=== PATIENT | female | born 1955 | race Caucasian/White ===

== ENCOUNTER 2016-05-05 04:02 | Inpatient (IN) | payer MEDICARE, MEDICAID ==
[2016-05-05] MEDS ORDERED: ACETAMINOPHEN TAB 500 MG TAB PO STA (05:42)
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
[2016-05-05] MEDS ORDERED: MAG HYDROX/AL HYDROX/SIMETH 30 ML CUP PO PRN (07:30)
[2016-05-05] MEDS ORDERED: ZIPRASIDONE 20 MG VIAL IM PRN (07:30)
[2016-05-05] MEDS ORDERED: ACETAMINOPHEN TAB 325 MG TAB PO PRN (07:30)
[2016-05-05] MEDS ORDERED: MAGNESIUM HYDROXIDE 2,400 MG/10 ML CUP PO PRN (07:30)
[2016-05-05] MEDS ORDERED: LORazepam 2 MG/ML SYRINGE IM PRN (07:35)
[2016-05-05] MEDS: NICOTINE 14MG/24HR PATCH TRANSDERM SCH (08:48)
[2016-05-05] MEDS: LORazepam 1 MG TAB PO PRN ×2 (10:34→16:00)
[2016-05-05 11:13] LABS: Basophils % (A) 0 %; CH 33.4; Eosinophils % (A) 1 %; HCT 35.7 % (34.0-46.0); HDW 2.17; HGB 12.3 gm/dL (11.4-16.0); Luc # (Auto) 0.15; Luc % (Auto) 2; Lymphocytes # (A) 1.2 k/uL (1.0-4.8); Lymphocytes % (A) 15 %; MCH 32.9 pg (25.0-35.0); MCHC 34.4 g/dL (31.0-37.0); MCV 95.7 fL (80.0-100.0); Mean Platelet Volume 6.6; Monocytes # (A) 0.5 k/uL (0-1.0); Monocytes % (A) 6 %; Neutrophils # (A) 6.2 k/uL (1.3-7.7); Neutrophils % (A) 77 %; RBC 3.73 m/uL (3.80-5.40); RDW 12.4 % (11.5-15.5); WBC 8.1 k/uL (3.8-10.6); WBC (Perox) 8.74
[2016-05-05 12:05] LABS: ALT 38 U/L (9-52); AST 37 U/L (14-36); Alkaline Phosphatase 77 U/L (38-126); Anion Gap 12 mmol/L; Blood Urea Nitrogen 3 mg/dL (7-17); Calcium 8.7 mg/dL (8.4-10.2); Carbon Dioxide 23 mmol/L (22-30); Chloride 87 mmol/L (98-107); Glucose 79 mg/dL (74-99); Non-African American GFR(MDRD) >60 (>60 ml/min/1.73 sqM); Potassium 4.1 mmol/L (3.5-5.1); Sodium 122 mmol/L (137-145); Total Bilirubin 0.5 mg/dL (0.2-1.3); Total Protein 6.5 g/dL (6.3-8.2)
[2016-05-05] MEDS ORDERED: AZELASTINE 137MCG/SPRAY EA NOSTRIL PRN (13:32)
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
[2016-05-05] MEDS: tiZANidine 4 MG TAB PO SCH ×2 (15:59→20:33)
[2016-05-05] MEDS: METOCLOPRAMIDE 10 MG TAB PO SCH (20:32)
[2016-05-05] MEDS: PRIMIDONE 50 MG TAB PO SCH (20:32)
[2016-05-05] MEDS: ATORVASTATIN 40 MG TAB PO SCH (20:33)
[2016-05-06] MEDS: tiZANidine 4 MG TAB PO SCH ×3 (08:41→20:35)
[2016-05-06] MEDS: PANTOPRAZOLE 40 MG TABLET PO SCH (08:41)
[2016-05-06] MEDS: NICOTINE 14MG/24HR PATCH TRANSDERM SCH (08:41)
[2016-05-06] MEDS: MONTELUKAST 10 MG TAB PO SCH (08:41)
[2016-05-06] MEDS: ASPIRIN 81 MG CHEW PO SCH (08:41)
[2016-05-06] MEDS: PRIMIDONE 50 MG TAB PO SCH ×2 (08:41→20:35)
[2016-05-06] MEDS: METOCLOPRAMIDE 10 MG TAB PO SCH ×2 (08:42→20:35)
[2016-05-06] MEDS: HYDROcodone/APAP 5-325MG 1 EACH TAB PO PRN ×2 (08:47→16:23)
[2016-05-06 09:50] LABS: ALT 42 U/L (9-52); AST 43 U/L (14-36); Alkaline Phosphatase 94 U/L (38-126); Anion Gap 14 mmol/L; Blood Urea Nitrogen 7 mg/dL (7-17); Calcium 9.9 mg/dL (8.4-10.2); Carbon Dioxide 24 mmol/L (22-30); Chloride 91 mmol/L (98-107); Glucose 104 mg/dL (74-99); Non-African American GFR(MDRD) >60 (>60 ml/min/1.73 sqM); Sodium 129 mmol/L (137-145); Total Bilirubin 0.9 mg/dL (0.2-1.3); Total Protein 7.4 g/dL (6.3-8.2)
[2016-05-06 14:57] VITALS: BMI 15.1
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
[2016-05-06] MEDS: ATORVASTATIN 40 MG TAB PO SCH (20:35)
[2016-05-06] MEDS: LORazepam 1 MG TAB PO PRN (20:36)
[2016-05-06 20:38] VITALS: RESP 18
[2016-05-07 00:29] VITALS: BP 114/71; PULSE 79; TEMP 97.9
[2016-05-07] MEDS: HYDROcodone/APAP 5-325MG 1 EACH TAB PO PRN ×2 (00:29→09:44)
[2016-05-07] MEDS ORDERED: CITALOPRAM HYDROBROMIDE 20 MG TAB PO SCH (09:00)
[2016-05-07] MEDS: NICOTINE 14MG/24HR PATCH TRANSDERM SCH (09:42)
[2016-05-07] MEDS: PRIMIDONE 50 MG TAB PO SCH (09:42)
[2016-05-07] MEDS: MONTELUKAST 10 MG TAB PO SCH (09:42)
[2016-05-07] MEDS: tiZANidine 4 MG TAB PO SCH (09:42)
[2016-05-07] MEDS: PANTOPRAZOLE 40 MG TABLET PO SCH (09:43)
[2016-05-07] MEDS: ASPIRIN 81 MG CHEW PO SCH (09:43)
[2016-05-07] MEDS: METOCLOPRAMIDE 10 MG TAB PO SCH (09:43)
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
== END 2016-05-07 14:28 | disposition home or self-care (01) | DRG 885 ==
LOC: EC 04:02 → 3MHU 07:29
PROVIDERS: ADMIT Psychiatry & Neurology Psychiatry; ATTEND Psychiatry & Neurology Psychiatry
PROC: HZ2ZZZZ Detoxification Services for Substance Abuse Treatment (ICD-10-PCS; principal; 2016-05-05)
DX: F33.2 Major depressive disorder, recurrent severe without psychotic features (principal); R64 Cachexia; E46 Unspecified protein-calorie malnutrition; E87.1 Hypo-osmolality and hyponatremia; R45.851 Suicidal ideations; F03.90 Unspecified dementia, unspecified severity, without behavioral disturbance, psychotic disturbance, mood disturbance, and anxiety; Z68.1 Body mass index [BMI] 19.9 or less, adult; F10.24 Alcohol dependence with alcohol-induced mood disorder; F10.239 Alcohol dependence with withdrawal, unspecified; J44.9 Chronic obstructive pulmonary disease, unspecified; G62.1 Alcoholic polyneuropathy; F10.229 Alcohol dependence with intoxication, unspecified; F41.9 Anxiety disorder, unspecified; J45.909 Unspecified asthma, uncomplicated; M54.2 Cervicalgia; M19.90 Unspecified osteoarthritis, unspecified site; M54.9 Dorsalgia, unspecified; M81.0 Age-related osteoporosis without current pathological fracture; G89.29 Other chronic pain; F17.210 Nicotine dependence, cigarettes, uncomplicated; Z90.710 Acquired absence of both cervix and uterus; Z90.49 Acquired absence of other specified parts of digestive tract; Z87.81 Personal history of (healed) traumatic fracture; Z80.0 Family history of malignant neoplasm of digestive organs; Z79.82 Long term (current) use of aspirin; Z79.83 Long term (current) use of bisphosphonates; Z79.891 Long term (current) use of opiate analgesic; Z98.1 Arthrodesis status; Z79.899 Other long term (current) drug therapy; Z71.6 Tobacco abuse counseling; Z63.0 Problems in relationship with spouse or partner; Z56.0 Unemployment, unspecified; Y90.5 Blood alcohol level of 100-119 mg/100 ml
CPT/HCPCS: 80053; 80306; 82075; 84443; 85025; 93005; 99285

== ENCOUNTER 2017-01-23 11:55 | Emergency (ER) | payer MEDICARE, OTHER ==
[2017-01-23] MEDS ORDERED: SODIUM CHLORIDE 0.9% 500 ML IV STA (11:56)
[2017-01-23] MEDS ORDERED: methylPREDNISolone SOD SUCCI 125 MG/2 ML VIAL IV STA (11:56)
--- NOTE | 2017-01-23 11:59 | ED ---
General Adult HPI - General Stated complaint: Chest Pain/SOB Time Seen by Provider: 01/23/17 11:55 Source: RN notes reviewed - History of Present Illness Initial comments: This is a 61-year-old female who presents emergency Department complaining of difficulty breathing last couple days. Patient states she's a COPD or. Patient states she continues to smoke. Patient states this shortness of breath is worse with exertion. Patient states she supposed be getting some oxygen for home use Weak but she has yet to get it. Patient denies any fever or chills. Patient states she has a dry cough which is typical for her. Patient states that she has chest pain only when she takes a deep breath. Patient denies any abdominal pain patient denies nausea or vomiting. Patient denies any lightheadedness or dizziness patient denies any numbness or weakness - Related Data Home Medications Medication Instructions Recorded Confirmed Alendronate Sodium [Fosamax] 70 mg PO Q7D 05/05/16 01/23/17 Aspirin EC [Ecotrin Low Dose] 81 mg PO DAILY 05/05/16 01/23/17 Atorvastatin [Lipitor] 40 mg PO HS 05/05/16 01/23/17 Azelastine HCl [Astepro] 1 spray EA NOSTRIL DAILY PRN 05/05/16 01/23/17 Citalopram Hydrobromide 40 mg PO DAILY 05/05/16 01/23/17 [Citalopram HBr] HYDROcodone/APAP 10-325MG [[place] 1 tab PO QID PRN 05/05/16 01/23/17 10-325] Metoclopramide [Reglan] 10 mg PO BID PRN 05/05/16 01/23/17 Montelukast [Singulair] 10 mg PO HS 05/05/16 01/23/17 Omeprazole [PriLOSEC] 20 mg PO AC-BRKFST 05/05/16 01/23/17 Primidone [Mysoline] 50 mg PO BID 05/05/16 01/23/17 tiZANidine [Zanaflex] 4 mg PO TID 05/05/16 01/23/17 ALPRAZolam [Xanax] 1 mg PO TID PRN 01/23/17 01/23/17 Albuterol Nebulized [Ventolin 2.5 mg INHALATION RT-QID 01/23/17 01/23/17 Nebulized] Ipratropium/Albuterol Sulfate 1 puff INHALATION RT-QID 01/23/17 01/23/17 [Combivent Respimat Inhaler] Previous Rx's Medication Instructions Recorded predniSONE 40 mg PO DAILY #8 tab 01/23/17 Allergies Allergy/AdvReac Type Severity Reaction Status Date / Time No Known Allergies Allergy Verified 01/23/17 12:20 Review of Systems ROS Statement: Those systems with pertinent positive or pertinent negative responses have been documented in the HPI. ROS Other: All systems not noted in ROS Statement are negative. Past Medical History Past Medical History: Asthma, COPD, Osteoarthritis (OA) Additional Past Medical History / Comment(s): Osteoporosis History of Any Multi-Drug Resistant Organisms: None Reported Past Surgical History: Appendectomy, Section, Hysterectomy Additional Past Surgical History / Comment(s): ACDF, ORIF right foot Past Psychological History: Anxiety, Depression Smoking Status: Current every day smoker Past Alcohol Use History: Occasional Additional Past Alcohol Use History / Comment(s): Patient is a smoker of 2 packs of cigarettes per day for 45 years. She states she drinks 2-325 ounce beers per day for the past 40 years. Past Drug Use History: None Reported - Past Family History Mother Additional Family Medical History / Comment(s): Mother at age 38 from colon cancer. Patient does not know her father. Son(s) Additional Family Medical History / Comment(s): Patient has 3 children, 2 boys and one girl with no major medical problems. Patient does not have any brothers or sisters. General Exam - General Exam Comments Initial Comments: GENERAL: Patient is well-developed and well-nourished. Patient is nontoxic and well- hydrated and is in mild distress. ENT: Neck is soft and supple. No significant lymphadenopathy is noted. Oropharynx is clear. Moist mucous membranes. Neck has full range of motion without eliciting any pain. EYES: The sclera were anicteric and conjunctiva were pink and moist. Extraocular movements were intact and pupils were equal round and reactive to light. Eyelids were unremarkable. PULMONARY: Patient has fairly good air movement but there is expiratory wheezing throughout CARDIOVASCULAR: There is a regular rate and rhythm without any murmurs gallops or rubs. ABDOMEN: Soft and nontender with normal bowel sounds. No palpable organomegaly was noted. There is no palpable pulsatile mass. SKIN: Skin is clear with no lesions or rashes and otherwise unremarkable. NEUROLOGIC: Patient is alert and oriented x3. Cranial nerves II through XII are grossly intact. Motor and sensory are also intact. Normal speech, volume and content. Symmetrical smile. MUSCULOSKELETAL: Normal extremities with adequate strength and full range of motion. No lower extremity swelling or edema. No calf tenderness. LYMPHATICS: No significant lymphadenopathy is noted PSYCHIATRIC: Normal psychiatric evaluation. Normal interpersonal interactions appears functionally intact in deals appropriately with others. No signs of depression. No signs of anxiety. Course Vital Signs 01/23/17 01/23/17 01/23/17 11:57 12:32 12:50 Temperature 98.7 F 97.6 F Pulse Rate 88 85 85 Respiratory 18 16 18 Rate Blood Pressure 120/81 126/77 O2 Sat by Pulse 96 97 Oximetry Medical Decision Making - Medical Decision Making Chest x-ray shows no acute normalities just COPD. Patient received steroids here and ordered he had 2 breathing treatments in route to the hospital. After lab work came back I ambulated the patient around the emergency department pulse ox was 95% on room air after ambulating and the patient stated she did feel better. - Lab Data Result diagrams: 01/23/17 12:10 01/23/17 12:10 Lab Results 01/23/17 01/23/17 01/23/17 Range/Units 12:10 12:10 12:10 WBC 6.4 (3.8-10.6) k/uL RBC 4.64 (3.80-5.40) m/uL Hgb 15.1 (11.4-16.0) gm/dL Hct 45.9 (34.0-46.0) % MCV 99.0 (80.0-100.0) fL MCH 32.6 (25.0-35.0) pg MCHC 32.9 (31.0-37.0) g/dL RDW 12.4 (11.5-15.5) % Plt Count 279 (150-450) k/uL Neutrophils % 70 % Lymphocytes % 21 % Monocytes % 5 % Eosinophils % 2 % Basophils % 1 % Neutrophils # 4.5 (1.3-7.7) k/uL Lymphocytes # 1.4 (1.0-4.8) k/uL Monocytes # 0.3 (0-1.0) k/uL Eosinophils # 0.1 (0-0.7) k/uL Basophils # 0.0 (0-0.2) k/uL PT (9.0-12.0) sec INR (<1.2) APTT (22.0-30.0) sec Sodium 138 (137-145) mmol/L Potassium 4.7 (3.5-5.1) mmol/L Chloride 101 (98-107) mmol/L Carbon Dioxide 24 (22-30) mmol/L Anion Gap 13 mmol/L BUN 7 (7-17) mg/dL Creatinine 0.75 (0.52-1.04) mg/dL Est GFR (MDRD) Af Amer >60 (>60 ml/min/1.73 sqM) Est GFR (MDRD) Non-Af >60 (>60 ml/min/1.73 sqM) Glucose 80 (74-99) mg/dL Calcium 10.0 (8.4-10.2) mg/dL Magnesium 2.1 (1.6-2.3) mg/dL Total Bilirubin 0.8 (0.2-1.3) mg/dL AST 42 H (14-36) U/L ALT 38 (9-52) U/L Alkaline Phosphatase 68 (38-126) U/L Total Creatine Kinase 159 H (30-135) U/L CK-MB (CK-2) 1.7 (0.0-2.4) ng/mL CK-MB (CK-2) Rel Index 1.1 Troponin I <0.012 (0.000-0.034) ng/mL Total Protein 8.1 (6.3-8.2) g/dL Albumin 5.2 H (3.5-5.0) g/dL 01/23/17 Range/Units 12:10 WBC (3.8-10.6) k/uL RBC (3.80-5.40) m/uL Hgb (11.4-16.0) gm/dL Hct (34.0-46.0) % MCV (80.0-100.0) fL MCH (25.0-35.0) pg MCHC (31.0-37.0) g/dL RDW (11.5-15.5) % Plt Count (150-450) k/uL Neutrophils % % Lymphocytes % % Monocytes % % Eosinophils % % Basophils % % Neutrophils # (1.3-7.7) k/uL Lymphocytes # (1.0-4.8) k/uL Monocytes # (0-1.0) k/uL Eosinophils # (0-0.7) k/uL Basophils # (0-0.2) k/uL PT 10.6 (9.0-12.0) sec INR 1.0 (<1.2) APTT 21.9 L (22.0-30.0) sec Sodium (137-145) mmol/L Potassium (3.5-5.1) mmol/L Chloride (98-107) mmol/L Carbon Dioxide (22-30) mmol/L Anion Gap mmol/L BUN (7-17) mg/dL Creatinine (0.52-1.04) mg/dL Est GFR (MDRD) Af Amer (>60 ml/min/1.73 sqM) Est GFR (MDRD) Non-Af (>60 ml/min/1.73 sqM) Glucose (74-99) mg/dL Calcium (8.4-10.2) mg/dL Magnesium (1.6-2.3) mg/dL Total Bilirubin (0.2-1.3) mg/dL AST (14-36) U/L ALT (9-52) U/L Alkaline Phosphatase (38-126) U/L Total Creatine Kinase (30-135) U/L CK-MB (CK-2) (0.0-2.4) ng/mL CK-MB (CK-2) Rel Index Troponin I (0.000-0.034) ng/mL Total Protein (6.3-8.2) g/dL Albumin (3.5-5.0) g/dL Disposition Clinical Impression: Acute exacerbation of chronic obstructive airways disease Disposition: HOME SELF-CARE Condition: Good Instructions: COPD (Chronic Obstructive Pulmonary Disease) (ED) Prescriptions: predniSONE 40 mg PO DAILY #8 tab Referrals: Santosh Hyatt DO [Primary Care Provider] - 1-2 days Time of Disposition: 13:53
[2017-01-23 12:48] LABS: Basophils % (A) 1 %; CH 32.7; CHCM 33.2; Eosinophils # (A) 0.1 k/uL (0-0.7); Eosinophils % (A) 2 %; HCT 45.9 % (34.0-46.0); HDW 2.16; HGB 15.1 gm/dL (11.4-16.0); Luc % (Auto) 2; Lymphocytes # (A) 1.4 k/uL (1.0-4.8); Lymphocytes % (A) 21 %; MCH 32.6 pg (25.0-35.0); MCHC 32.9 g/dL (31.0-37.0); Monocytes # (A) 0.3 k/uL (0-1.0); Monocytes % (A) 5 %; Neutrophils # (A) 4.5 k/uL (1.3-7.7); Neutrophils % (A) 70 %; RBC 4.64 m/uL (3.80-5.40); RDW 12.4 % (11.5-15.5); WBC 6.4 k/uL (3.8-10.6); WBC (Perox) 6.36
--- NOTE | 2017-01-23 12:53 | XR ---
EXAMINATION TYPE: XR chest 2V DATE OF EXAM: 01/23/2017 HISTORY: difficulty breathing. REFERENCE: Previous study dated 02/06/2014. FINDINGS: The lungs are overinflated but clear. Pleural spaces are clear. The heart is not enlarged. IMPRESSION: COPD.
[2017-01-23 12:56] LABS: Anion Gap 13 mmol/L; Carbon Dioxide 24 mmol/L (22-30); Chloride 101 mmol/L (98-107); Glucose 80 mg/dL (74-99); Non-African American GFR(MDRD) >60 (>60 ml/min/1.73 sqM); Sodium 138 mmol/L (137-145); Total Bilirubin 0.8 mg/dL (0.2-1.3)
[2017-01-23 13:05] LABS: Blood Urea Nitrogen 7 mg/dL (7-17); Potassium 4.7 mmol/L (3.5-5.1)
[2017-01-23 13:06] LABS: ALT 38 U/L (9-52); AST 42 U/L (14-36); Alkaline Phosphatase 68 U/L (38-126); Magnesium 2.1 mg/dL (1.6-2.3); Prothrombin Time 10.6 sec (9.0-12.0); Total Protein 8.1 g/dL (6.3-8.2)
[2017-01-23 13:07] LABS: Partial Thromboplastin Time 21.9 sec (22.0-30.0)
[2017-01-23 13:10] VITALS: RESP 18
[2017-01-23 13:10] LABS: Creatine Kinase 159 U/L (30-135)
[2017-01-23 13:21] LABS: Creatine Kinase MB 1.7 ng/mL (0.0-2.4)
[2017-01-23 13:22] LABS: Troponin I <0.012 ng/mL (0.000-0.034)
[2017-01-23 14:04] VITALS: BP 133/87; PULSE 98; TEMP 98.6
== END 2017-01-23 14:00 | disposition home or self-care (01) ==
LOC: EC 11:55
DX: J44.1 Chronic obstructive pulmonary disease with (acute) exacerbation (principal); M81.0 Age-related osteoporosis without current pathological fracture; F32.9 Major depressive disorder, single episode, unspecified; F17.210 Nicotine dependence, cigarettes, uncomplicated; Z79.82 Long term (current) use of aspirin; Z79.899 Other long term (current) drug therapy
CPT/HCPCS: 99285; 96374; 96361; 36415; 93005; 80053; 82550; 82553; 83735; 84484; 85025; 85610; 85730; 71020; J2930

== ENCOUNTER 2017-02-11 20:11 | Inpatient (IN) | payer MEDICARE, OTHER ==
[2017-02-11] MEDS ORDERED: NALOXONE 0.4 MG/ML 10 ML VIAL IVP STA (20:31)
[2017-02-11] MEDS ORDERED: SUCCINYLCHOLINE CHLORIDE VIAL 200 MG/10 ML VIAL IV STA (20:36)
[2017-02-11 20:37] LABS: Glucose,Whole Blood 71 mg/dL (75-99)
--- NOTE | 2017-02-11 20:40 | ED ---
General Adult HPI - General Chief complaint: Overdose Stated complaint: Altered Mental Status Time Seen by Provider: 02/11/17 20:29 Source: EMS, RN notes reviewed Mode of arrival: EMS Limitations: altered mental status, physical limitation - History of Present Illness Initial comments: Patient is an unresponsive 61-year-old female presenting to the emergency department for change in mental status. Family found patient with decreased responsiveness. Nurse states patient has had decreased responsiveness since arrival. Family reported prescription bottle of 60 Xanax prescribed 1 week ago is gone and they have concern for overdose. Patient is unable to provide any further history. Family is not present at this time - Related Data Home Medications Medication Instructions Recorded Confirmed Alendronate Sodium [Fosamax] 70 mg PO Q7D 05/05/16 02/14/17 HYDROcodone/APAP 10-325MG [[place] 1 tab PO Q4H PRN 05/05/16 02/14/17 10-325] tiZANidine [Zanaflex] 4 mg PO TID 05/05/16 02/14/17 Ipratropium/Albuterol Sulfate 1 puff INHALATION RT-QID 01/23/17 02/14/17 [Combivent Respimat Inhaler] Fluticasone Propionate [Flovent 2 puff INHALATION RT-BID 02/12/17 02/14/17 Hfa 220MCG] Previous Rx's Medication Instructions Recorded ALPRAZolam [Xanax] 1 mg PO HS PRN #14 tablet 02/18/17 Albuterol Nebulized [Ventolin 2.5 mg INHALATION RT-Q4H PRN #0 02/18/17 Nebulized] Aspirin EC [Ecotrin Low Dose] 81 mg PO DAILY #14 tablet.dr 02/18/17 Atorvastatin [Lipitor] 40 mg PO HS #14 tab 02/18/17 Azelastine HCl [Astepro] 1 spray EA NOSTRIL DAILY PRN spr 02/18/17 Budesonide [Pulmicort] 0.5 mg INHALATION RT-BID PRN 14 02/18/17 Days nebu Cholecalciferol [Vitamin D3] 1,000 unit PO DAILY #14 tab 02/18/17 Citalopram Hydrobromide 40 mg PO DAILY #14 tablet 02/18/17 [Citalopram HBr] Ipratropium-Albuterol Nebulize 3 ml INHALATION RT-TID PRN 14 Days 02/18/17 [Duoneb 0.5 mg-3 mg/3 ml Soln] ampul.neb Metoclopramide [Reglan] 5 mg PO DAILY PRN #14 tab 02/18/17 Metoprolol Succinate (ER) [Toprol 25 mg PO DAILY #7 tab.er.24h 02/18/17 XL] Montelukast [Singulair] 10 mg PO HS #14 tab 02/18/17 Nicotine 14Mg/24Hr Patch [Habitrol] 1 patch TRANSDERM DAILY #14 patch 02/18/17 Omeprazole [PriLOSEC] 20 mg PO AC-BRKFST #14 capsule.dr 02/18/17 Primidone [Mysoline] 50 mg PO BID #28 tab 02/18/17 tiZANidine [Zanaflex] 4 mg PO TID #42 tab 02/18/17 Allergies Allergy/AdvReac Type Severity Reaction Status Date / Time No Known Allergies Allergy Verified 02/14/17 17:40 Review of Systems ROS Statement: Those systems with pertinent positive or pertinent negative responses have been documented in the HPI. ROS Other: All systems not noted in ROS Statement are negative. Limitations: ROS unobtainable due to patients medical condition Past Medical History Past Medical History: Asthma, COPD, Osteoarthritis (OA) Additional Past Medical History / Comment(s): Osteoporosis History of Any Multi-Drug Resistant Organisms: None Reported Past Surgical History: Appendectomy, Section, Hysterectomy Additional Past Surgical History / Comment(s): ACDF, ORIF right foot Past Psychological History: Anxiety, Depression Smoking Status: Current every day smoker Past Alcohol Use History: Occasional Past Drug Use History: None Reported - Past Family History Mother Additional Family Medical History / Comment(s): Mother at age 38 from colon cancer. Patient does not know her father. Son(s) Additional Family Medical History / Comment(s): Patient has 3 children, 2 boys and one girl with no major medical problems. Patient does not have any brothers or sisters. General Exam Limitations: altered mental status General appearance: obtunded Head exam: Present: atraumatic Eye exam: Present: normal appearance ENT exam: Present: normal oropharynx Neck exam: Present: normal inspection Respiratory exam: Present: normal lung sounds bilaterally Cardiovascular Exam: Present: regular rate, normal rhythm GI/Abdominal exam: Present: soft. Absent: tenderness Extremities exam: Present: normal inspection Expanded Neurological exam: Present: other (Nonverbal. Limited gag.) Eye Response: (1) no response Motor Response: (4) withdraws to pain (Limited withdrawal) Verbal Response: (1) no verbal response Psychiatric exam: Present: other (Nonverbal) Skin exam: Present: normal color. Absent: rash Course Vital Signs 02/11/17 02/11/17 02/11/17 20:14 20:24 20:41 Temperature 96.8 F L Pulse Rate 82 76 61 Respiratory 14 18 20 Rate Blood Pressure 102/67 89/67 124/80 O2 Sat by Pulse 98 98 100 Oximetry 02/11/17 02/11/17 02/11/17 21:10 21:32 21:49 Temperature Pulse Rate 70 63 66 Respiratory 14 14 14 Rate Blood Pressure 111/58 101/60 96/59 O2 Sat by Pulse 100 100 100 Oximetry 02/11/17 02/11/17 02/11/17 21:54 22:09 22:31 Temperature Pulse Rate 67 66 80 Respiratory 14 14 14 Rate Blood Pressure 99/60 95/59 107/64 O2 Sat by Pulse 100 100 100 Oximetry 02/11/17 02/11/17 02/12/17 22:58 23:48 00:25 Temperature Pulse Rate 62 66 59 L Respiratory 14 14 14 Rate Blood Pressure 131/77 103/62 116/75 O2 Sat by Pulse 100 100 100 Oximetry 02/12/17 02/12/17 00:58 00:59 Temperature 98.1 F Pulse Rate 75 Respiratory 14 14 Rate Blood Pressure 124/59 O2 Sat by Pulse 100 96 Oximetry - Reevaluation(s) Reevaluation #1: 02/11/17 20:55 No improvement with Narcan. Patient was intubated. 02/11/17 21:19 Endotracheal tube advanced. 02/11/17 21:[address] Ahmadi. EKG Findings - EKG Comments: EKG Findings:: Normal sinus rhythm 79. [place] 158. QRS 56. QT 388. QTC 444. Normal axis. Septal Q waves. No acute ST change. Procedures - Intubation Time Out Performed: Yes Paralytic: Succinylcholine Mg Given: 80 Laryngoscope: Calderón Size: 3 ET Tube Size: 7 Tube Secured Depth (cm): 21 Tube Placement Confirmation: visualized tube passing through cords, equal breath sounds bilaterally, confirmation by capnometry Patient Tolerated Procedure: well Intubation Complications: none Medical Decision Making - Lab Data Result diagrams: 02/14/17 06:40 02/14/17 06:40 Lab Results 02/11/17 02/11/17 02/11/17 Range/Units 20:19 20:19 20:19 WBC 4.2 (3.8-10.6) k/uL RBC 4.45 (3.80-5.40) m/uL Hgb 14.0 (11.4-16.0) gm/dL Hct 43.9 (34.0-46.0) % MCV 98.5 (80.0-100.0) fL MCH 31.5 (25.0-35.0) pg MCHC 32.0 (31.0-37.0) g/dL RDW 12.4 (11.5-15.5) % Plt Count 297 (150-450) k/uL Neutrophils % 47 % Lymphocytes % 43 % Monocytes % 6 % Eosinophils % 2 % Basophils % 0 % Neutrophils # 2.0 (1.3-7.7) k/uL Lymphocytes # 1.8 (1.0-4.8) k/uL Monocytes # 0.3 (0-1.0) k/uL Eosinophils # 0.1 (0-0.7) k/uL Basophils # 0.0 (0-0.2) k/uL PT (9.0-12.0) sec INR (<1.2) Sample Site ABG pH (7.35-7.45) ABG pCO2 (35-45) mmHg ABG pO2 (83-108) mmHg ABG HCO3 (21-25) mmol/L ABG Total CO2 (19-24) mmol/L ABG O2 Saturation (94-97) % ABG Base Excess mmol/L FiO2 % Sodium 137 (137-145) mmol/L Potassium 4.6 (3.5-5.1) mmol/L Chloride 105 (98-107) mmol/L Carbon Dioxide 23 (22-30) mmol/L Anion Gap 9 mmol/L BUN 8 (7-17) mg/dL Creatinine 0.60 (0.52-1.04) mg/dL Est GFR (MDRD) Af Amer >60 (>60 ml/min/1.73 sqM) Est GFR (MDRD) Non-Af >60 (>60 ml/min/1.73 sqM) Glucose 81 (74-99) mg/dL POC Glucose (mg/dL) (75-99) mg/dL POC Glu [employer] Analysis Technician ID Calcium 9.7 (8.4-10.2) mg/dL Total Bilirubin 0.4 (0.2-1.3) mg/dL AST 25 (14-36) U/L ALT 32 (9-52) U/L Alkaline Phosphatase 76 (38-126) U/L Total Creatine Kinase 85 (30-135) U/L CK-MB (CK-2) 2.0 (0.0-2.4) ng/mL CK-MB (CK-2) Rel Index 2.4 Troponin I <0.012 (0.000-0.034) ng/mL Total Protein 6.4 (6.3-8.2) g/dL Albumin 4.1 (3.5-5.0) g/dL Urine HCG, Qual (Not Detectd) Salicylates <1.0 mg/dL Urine Opiates Screen (NotDetected) Ur Oxycodone Screen (NotDetected) Urine Methadone Screen (NotDetected) Ur Propoxyphene Screen (NotDetected) Acetaminophen <10.0 ug/mL Ur Barbiturates Screen (NotDetected) U Tricyclic Antidepress (NotDetected) Ur Phencyclidine Scrn (NotDetected) Ur Amphetamines Screen (NotDetected) U Methamphetamines Scrn (NotDetected) U Benzodiazepines Scrn (NotDetected) Urine Cocaine Screen (NotDetected) U Marijuana (THC) Screen (NotDetected) Serum Alcohol <10 mg/dL 02/11/17 02/11/17 02/11/17 Range/Units 20:19 20:20 21:21 WBC (3.8-10.6) k/uL RBC (3.80-5.40) m/uL Hgb (11.4-16.0) gm/dL Hct (34.0-46.0) % MCV (80.0-100.0) fL MCH (25.0-35.0) pg MCHC (31.0-37.0) g/dL RDW (11.5-15.5) % Plt Count (150-450) k/uL Neutrophils % % Lymphocytes % % Monocytes % % Eosinophils % % Basophils % % Neutrophils # (1.3-7.7) k/uL Lymphocytes # (1.0-4.8) k/uL Monocytes # (0-1.0) k/uL Eosinophils # (0-0.7) k/uL Basophils # (0-0.2) k/uL PT 10.6 (9.0-12.0) sec INR 1.0 (<1.2) Sample Site ABG pH (7.35-7.45) ABG pCO2 (35-45) mmHg ABG pO2 (83-108) mmHg ABG HCO3 (21-25) mmol/L ABG Total CO2 (19-24) mmol/L ABG O2 Saturation (94-97) % ABG Base Excess mmol/L FiO2 % Sodium (137-145) mmol/L Potassium (3.5-5.1) mmol/L Chloride (98-107) mmol/L Carbon Dioxide (22-30) mmol/L Anion Gap mmol/L BUN (7-17) mg/dL Creatinine (0.52-1.04) mg/dL Est GFR (MDRD) Af Amer (>60 ml/min/1.73 sqM) Est GFR (MDRD) Non-Af (>60 ml/min/1.73 sqM) Glucose (74-99) mg/dL POC Glucose (mg/dL) 71 L (75-99) mg/dL POC Glu [employer] Analysis Technician ID Asha [place] Calcium (8.4-10.2) mg/dL Total Bilirubin (0.2-1.3) mg/dL AST (14-36) U/L ALT (9-52) U/L Alkaline Phosphatase (38-126) U/L Total Creatine Kinase (30-135) U/L CK-MB (CK-2) (0.0-2.4) ng/mL CK-MB (CK-2) Rel Index Troponin I (0.000-0.034) ng/mL Total Protein (6.3-8.2) g/dL Albumin (3.5-5.0) g/dL Urine HCG, Qual (Not Detectd) Salicylates mg/dL Urine Opiates Screen Not Detected (NotDetected) Ur Oxycodone Screen Not Detected (NotDetected) Urine Methadone Screen Not Detected (NotDetected) Ur Propoxyphene Screen Not Detected (NotDetected) Acetaminophen ug/mL Ur Barbiturates Screen Detected H (NotDetected) U Tricyclic Antidepress Not Detected (NotDetected) Ur Phencyclidine Scrn Not Detected (NotDetected) Ur Amphetamines Screen Not Detected (NotDetected) U Methamphetamines Scrn Not Detected (NotDetected) U Benzodiazepines Scrn Detected H (NotDetected) Urine Cocaine Screen Not Detected (NotDetected) U Marijuana (THC) Screen Not Detected (NotDetected) Serum Alcohol mg/dL 02/11/17 02/11/17 Range/Units 21:21 21:40 WBC (3.8-10.6) k/uL RBC (3.80-5.40) m/uL Hgb (11.4-16.0) gm/dL Hct (34.0-46.0) % MCV (80.0-100.0) fL MCH (25.0-35.0) pg MCHC (31.0-37.0) g/dL RDW (11.5-15.5) % Plt Count (150-450) k/uL Neutrophils % % Lymphocytes % % Monocytes % % Eosinophils % % Basophils % % Neutrophils # (1.3-7.7) k/uL Lymphocytes # (1.0-4.8) k/uL Monocytes # (0-1.0) k/uL Eosinophils # (0-0.7) k/uL Basophils # (0-0.2) k/uL PT (9.0-12.0) sec INR (<1.2) Sample Site rrad ABG pH 7.29 L (7.35-7.45) ABG pCO2 48 H (35-45) mmHg ABG pO2 >420 H (83-108) mmHg ABG HCO3 22 (21-25) mmol/L ABG Total CO2 24 (19-24) mmol/L ABG O2 Saturation 100.0 H (94-97) % ABG Base Excess -3.2 mmol/L FiO2 100 % Sodium (137-145) mmol/L Potassium (3.5-5.1) mmol/L Chloride (98-107) mmol/L Carbon Dioxide (22-30) mmol/L Anion Gap mmol/L BUN (7-17) mg/dL Creatinine (0.52-1.04) mg/dL Est GFR (MDRD) Af Amer (>60 ml/min/1.73 sqM) Est GFR (MDRD) Non-Af (>60 ml/min/1.73 sqM) Glucose (74-99) mg/dL POC Glucose (mg/dL) (75-99) mg/dL POC Glu [employer] Analysis Technician ID Calcium (8.4-10.2) mg/dL Total Bilirubin (0.2-1.3) mg/dL AST (14-36) U/L ALT (9-52) U/L Alkaline Phosphatase (38-126) U/L Total Creatine Kinase (30-135) U/L CK-MB (CK-2) (0.0-2.4) ng/mL CK-MB (CK-2) Rel Index Troponin I (0.000-0.034) ng/mL Total Protein (6.3-8.2) g/dL Albumin (3.5-5.0) g/dL Urine HCG, Qual Not Detected (Not Detectd) Salicylates mg/dL Urine Opiates Screen (NotDetected) Ur Oxycodone Screen (NotDetected) Urine Methadone Screen (NotDetected) Ur Propoxyphene Screen (NotDetected) Acetaminophen ug/mL Ur Barbiturates Screen (NotDetected) U Tricyclic Antidepress (NotDetected) Ur Phencyclidine Scrn (NotDetected) Ur Amphetamines Screen (NotDetected) U Methamphetamines Scrn (NotDetected) U Benzodiazepines Scrn (NotDetected) Urine Cocaine Screen (NotDetected) U Marijuana (THC) Screen (NotDetected) Serum Alcohol mg/dL - Radiology Data Radiology results: image reviewed (Chest x-ray shows endotracheal tube which is somewhat cephalad. Appropriate placed enteric tube.) Critical Care Time Critical Care Time: Yes Total Critical Care Time: 34 Disposition Clinical Impression: Overdose Disposition: ADMITTED IP TO THIS HOSP
[2017-02-11 20:52] LABS: Prothrombin Time 10.6 sec (9.0-12.0)
[2017-02-11] MEDS ORDERED: LORazepam 2 MG/ML INJ IV PRN (20:56)
[2017-02-11 21:00] LABS: Basophils % (A) 0 %; CH 32.8; CHCM 33.4; Eosinophils # (A) 0.1 k/uL (0-0.7); Eosinophils % (A) 2 %; HCT 43.9 % (34.0-46.0); HDW 2.22; Luc # (Auto) 0.08; Luc % (Auto) 2; Lymphocytes # (A) 1.8 k/uL (1.0-4.8); Lymphocytes % (A) 43 %; MCH 31.5 pg (25.0-35.0); MCV 98.5 fL (80.0-100.0); Mean Platelet Volume 6.9; Monocytes # (A) 0.3 k/uL (0-1.0); Monocytes % (A) 6 %; Neutrophils % (A) 47 %; RBC 4.45 m/uL (3.80-5.40); RDW 12.4 % (11.5-15.5); WBC 4.2 k/uL (3.8-10.6); WBC (Perox) 4.08
[2017-02-11 21:03] LABS: ALT 32 U/L (9-52); AST 25 U/L (14-36); Acetaminophen <10.0 ug/mL; Alcohol <10 mg/dL; Alkaline Phosphatase 76 U/L (38-126); Anion Gap 9 mmol/L; Blood Urea Nitrogen 8 mg/dL (7-17); Calcium 9.7 mg/dL (8.4-10.2); Carbon Dioxide 23 mmol/L (22-30); Chloride 105 mmol/L (98-107); Glucose 81 mg/dL (74-99); Non-African American GFR(MDRD) >60 (>60 ml/min/1.73 sqM); Potassium 4.6 mmol/L (3.5-5.1); Salicylate <1.0 mg/dL; Sodium 137 mmol/L (137-145); Total Bilirubin 0.4 mg/dL (0.2-1.3); Total Protein 6.4 g/dL (6.3-8.2)
[2017-02-11] MEDS: PROPOFOL 1,000 MG/100 ML VIAL IV SCH (21:07)
[2017-02-11 21:14] LABS: Troponin I <0.012 ng/mL (0.000-0.034)
--- NOTE | 2017-02-11 21:16 | XR ---
EXAMINATION TYPE: XR chest 1V portable DATE OF EXAM: 02/11/2017 COMPARISON: 01/23/2017 HISTORY: Endotracheal tube placement. TECHNIQUE: Single frontal view of the chest is obtained. FINDINGS: Endotracheal tube is cephalad in place and should be advanced approximately 2.5 cm for opti mal placement. Enteric tube courses beyond the gastroesophageal junction and beyond the distal field- of-view. There is no focal air space opacity, pleural effusion, or pneumothorax seen. The cardiac si lhouette size is within normal limits. The osseous structures are intact. Pulmonary hyperinflation is again compatible with underlying COPD. IMPRESSION: Cephalad position of endotracheal tube which should be advanced approximately 2.5 cm for optimal placement. Appropriately placed enteric tube. No acute cardiopulmonary pathology.
[2017-02-11 21:19] LABS: Creatine Kinase 85 U/L (30-135)
[2017-02-11] MEDS ORDERED: SODIUM CHLORIDE 0.9% 500 ML IV STA (21:21)
[2017-02-11 21:52] LABS: ABG HCO3 22 mmol/L (21-25); ABG PCO2 48 mmHg (35-45); ABG PH 7.29 (7.35-7.45); ABG PO2 >420 mmHg (83-108)
[2017-02-11 21:53] LABS: ABG Base Excess -3.2 mmol/L; ABG TCO2 24 mmol/L (19-24)
[2017-02-11] MEDS: LORazepam 2 MG/ML INJ IV PRN ×2 (21:53→22:03)
--- NOTE | 2017-02-11 22:39 | CT ---
EXAMINATION TYPE: CT brain wo con DATE OF EXAM: 02/11/2017 COMPARISON: 10/04/2014 HISTORY: Patient found unresponsive, possible overdose. CT DLP: 1018.70 mGycm Automated exposure control for dose reduction was used. FINDINGS: Ventricles of normal size. There is no mass effect nor midline shift. There is no sign of intracrania l hemorrhage. There is a 17 x 12 mm area of fat density in the posterior fossa posterior to the jorje and above the cerebellum near the midline. This is consistent with a lipoma of the falx or the tentor ium cerebelli.. This appears unchanged compared to old exam. The calvarium is intact. There is no evidence of cortical infarct. There is mild atrophy of the tempo ral lobes. There is mild frontal lobe atrophy. 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 NO ACUTE INTRACRANIAL ABNORMALITY. NO CHANGE.
[2017-02-12] MEDS ORDERED: NALOXONE 0.4 MG/ML 1 ML VIAL IV PRN (00:13)
[2017-02-12] MEDS ORDERED: IPRATROPIUM-ALBUTEROL 3 ML NEB INHALATION PRN (00:59)
[2017-02-12 01:29] LABS: Glucose,Whole Blood 61 mg/dL (75-99)
[2017-02-12] MEDS: DEXTROSE 10 % IN WATER 150 ML IV STA ×2 (01:40→09:09)
[2017-02-12 01:54] LABS: Glucose,Whole Blood 155 mg/dL (75-99)
[2017-02-12 04:02] LABS: Appearance,Urine Clear (Clear); Bacteria,Urine Rare /hpf; Bilirubin,Urine Negative (Negative); Glucose,Urine (UA) Trace (Negative); Ketones,Urine Negative (Negative); Leukocyte Esterase,Urine Trace (Negative); Mucus,Urine Occasional /hpf; Nitrite,Urine Negative (Negative); PH, Urine 5.5 (5.0-8.0); Particle Count 2243; Protein,Urine Negative (Negative); RBC,Urine 25 /hpf (0-5); Specific Gravity,Urine 1.012 (1.001-1.035); Squamous Epithelial Cell,Urine <1 /hpf (0-4); UA Billing (MACRO vs. MICRO) MICRO; Urobilinogen,Urine <2.0 mg/dL (<2.0); WBC,Urine 5 /hpf (0-5)
[2017-02-12] MEDS: SODIUM CHLORIDE 0.9% 1,000 ML IV SCH ×2 (04:26→14:33)
[2017-02-12 04:31] LABS: Glucose,Whole Blood 87 mg/dL (75-99)
[2017-02-12 04:56] LABS: Basophils % (A) 0 %; CH 32.3; CHCM 31.6; Eosinophils # (A) 0.1 k/uL (0-0.7); Eosinophils % (A) 1 %; HCT 40.4 % (34.0-46.0); HDW 2.23; HGB 12.7 gm/dL (11.4-16.0); Luc % (Auto) 3; Lymphocytes # (A) 1.9 k/uL (1.0-4.8); Lymphocytes % (A) 24 %; MCH 32.2 pg (25.0-35.0); MCHC 31.3 g/dL (31.0-37.0); MCV 102.8 fL (80.0-100.0); Macrocytosis Slight; Mean Platelet Volume 7.4; Monocytes # (A) 0.8 k/uL (0-1.0); Monocytes % (A) 11 %; Neutrophils # (A) 4.7 k/uL (1.3-7.7); Neutrophils % (A) 61 %; RBC 3.93 m/uL (3.80-5.40); RDW 12.5 % (11.5-15.5); WBC 7.7 k/uL (3.8-10.6); WBC (Perox) 7.67
[2017-02-12 04:58] LABS: Anion Gap 7 mmol/L; Blood Urea Nitrogen 8 mg/dL (7-17); Calcium 8.9 mg/dL (8.4-10.2); Carbon Dioxide 21 mmol/L (22-30); Chloride 108 mmol/L (98-107); Glucose 95 mg/dL (74-99); Non-African American GFR(MDRD) >60 (>60 ml/min/1.73 sqM); Phosphorus 2.9 mg/dL (2.5-4.5); Potassium 4.3 mmol/L (3.5-5.1); Sodium 136 mmol/L (137-145)
[2017-02-12] MEDS: PROPOFOL 1,000 MG/100 ML VIAL IV SCH (06:54)
[2017-02-12] MEDS: IPRATROPIUM-ALBUTEROL 3 ML NEB INHALATION SCH ×4 (08:04→19:05)
[2017-02-12] MEDS ORDERED: SODIUM CHLORIDE 0.9% 1,000 ML IV ONE (08:40)
[2017-02-12 08:48] LABS: ABG HCO3 21 mmol/L (21-25); ABG PCO2 33 mmHg (35-45); ABG PH 7.43 (7.35-7.45); ABG PO2 140 mmHg (83-108); ABG TCO2 22 mmol/L (19-24)
[2017-02-12 08:49] LABS: ABG Base Excess -2.4 mmol/L
[2017-02-12 08:56] LABS: Glucose,Whole Blood 56 mg/dL (75-99)
[2017-02-12] MEDS ORDERED: CHLORHEXIDINE GLUCONATE 15 ML CUP MUCOUS MEM SCH (09:00)
[2017-02-12] MEDS: HEPARIN SODIUM,PORCINE 5,000 UNIT/ML 1 ML VIAL SQ SCH ×3 (09:00→23:34)
[2017-02-12] MEDS: PANTOPRAZOLE 40 MG/10 ML VIAL IV SCH (09:00)
[2017-02-12 09:36] LABS: Glucose,Whole Blood 97 mg/dL (75-99)
--- NOTE | 2017-02-12 09:53 | XR ---
EXAMINATION TYPE: XR chest 1V DATE OF EXAM: 02/12/2017 COMPARISON: 02/11/2017 INDICATION: Difficulty breathing on ventilator TECHNIQUE: Single frontal view of the chest is obtained. FINDINGS: The heart size is normal. The pulmonary vasculature is normal. The lungs are clear. Old rib fractures are along the left. Patient is intubated with the tip of the endotracheal tube abov e the jose. Nasogastric tube transverses the thorax. IMPRESSION: 1. No acute pulmonary process. 2. Lines and catheters discussed above.
--- NOTE | 2017-02-12 11:02 | P.HPIM ---
History of Present Illness H&P Date: 02/12/17 Chief Complaint: Overdose This is a 61-year-old female. Her primary care physician is Dr. Hyatt. She has a past medical history for asthma, COPD, osteoarthritis, osteoporosis, tobacco use and dependence, anxiety and depression, alcohol abuse , peripheral neuropathy. Asked admitted in April 2016 for moderate alcohol withdrawal and suicidal ideation with the knife in her hand to harm herself in the emergency room. Patient drinks about 2-3 25 ounce beers per day for the past 40 years has gone through DTs before.. She states she has gone through DTs before. She denies any seizures in the past. Patient was admitted to mental health under Dr. Mcdonough and was discharged with referal to outpatient mental health services for Alcoholics Anonymous group. Patient here this time for change in mental status and decreased responsiveness according to the family. Family reported patient taking 60 tablets of Xanax in the last 1 week and it was a suicidal attempt. Patient was intubated in emergency for protection of airways as GCS score was 6. EKG done in the ED was normal sinus rhythm, with normal QRS and QT interval. Urine drug screen was positive for barbiturates and benzodiazepines. CBC and BMP was unremarkable. Chest x-ray was negative for any acute abnormality. Patient was intubated and transferred to the ICU for management of benzodiazepine overdose. Review of Systems ROS unobtainable: due to endotracheal tube, due to mental status Past Medical History Past Medical History: Asthma, COPD, Osteoarthritis (OA) Additional Past Medical History / Comment(s): Osteoporosis History of Any Multi-Drug Resistant Organisms: None Reported Past Surgical History: Appendectomy, Section, Hysterectomy Additional Past Surgical History / Comment(s): ACDF, ORIF right foot Past Psychological History: Anxiety, Depression Smoking Status: Unknown if ever smoked Past Alcohol Use History: Occasional Additional Past Alcohol Use History / Comment(s): Patient is a smoker of 2 packs of cigarettes per day for 45 years. She states she drinks 2-3 25 ounce beers per day for the past 40 years. Past Drug Use History: None Reported - Past Family History Mother Additional Family Medical History / Comment(s): Mother at age 38 from colon cancer. Patient does not know her father. Son(s) Additional Family Medical History / Comment(s): Patient has 3 children, 2 boys and one girl with no major medical problems. Patient does not have any brothers or sisters. Medications and Allergies Home Medications Medication Instructions Recorded Confirmed Type Alendronate Sodium [Fosamax] 70 mg PO Q7D 05/05/16 02/12/17 History Aspirin EC [Ecotrin Low Dose] 81 mg PO DAILY 05/05/16 02/12/17 History Atorvastatin [Lipitor] 40 mg PO HS 05/05/16 02/12/17 History Azelastine HCl [Astepro] 1 spray EA NOSTRIL DAILY PRN 05/05/16 02/12/17 History Citalopram Hydrobromide 40 mg PO DAILY 05/05/16 02/12/17 History [Citalopram HBr] HYDROcodone/APAP 10-325MG [[place] 1 tab PO Q4H PRN 05/05/16 02/12/17 History 10-325] Montelukast [Singulair] 10 mg PO HS 05/05/16 02/12/17 History Omeprazole [PriLOSEC] 20 mg PO AC-BRKFST 05/05/16 02/12/17 History Primidone [Mysoline] 50 mg PO BID 05/05/16 02/12/17 History tiZANidine [Zanaflex] 4 mg PO TID 05/05/16 02/12/17 History ALPRAZolam [Xanax] 1 mg PO BID PRN 01/23/17 02/12/17 History Albuterol Nebulized [Ventolin 2.5 mg INHALATION RT-Q4H 01/23/17 02/12/17 History Nebulized] Ipratropium/Albuterol Sulfate 1 puff INHALATION RT-QID 01/23/17 02/12/17 History [Combivent Respimat Inhaler] Budesonide [Pulmicort] 0.5 mg INHALATION RT-BID 02/12/17 02/12/17 History Cholecalciferol [Vitamin D3] 1,000 unit PO DAILY 02/12/17 02/12/17 History Fluticasone Propionate [Flovent 2 puff INHALATION RT-BID 02/12/17 02/12/17 History Hfa 220MCG] Metoclopramide HCl [Reglan] 5 mg PO DAILY PRN 02/12/17 02/12/17 History Allergies Allergy/AdvReac Type Severity Reaction Status Date / Time No Known Allergies Allergy Verified 02/11/17 20:14 Physical Exam Vitals: Vital Signs Temp Pulse Resp BP Pulse Ox 02/12/17 08:09 55 L 02/12/17 08:00 98.3 F 58 L 17 113/66 100 02/12/17 07:00 52 L 14 107/65 100 02/12/17 06:00 56 L 13 101/60 100 02/12/17 05:00 59 L 14 87/61 100 02/12/17 04:00 98.4 F 58 L 18 118/67 100 02/12/17 03:00 89 28 H 114/73 91 L 02/12/17 02:00 54 L 14 107/67 100 02/12/17 01:30 98.1 F 58 L 14 128/76 100 02/12/17 00:59 98.1 F 14 96 02/12/17 00:58 75 14 124/59 100 02/12/17 00:25 59 L 14 116/75 100 02/11/17 23:48 66 14 103/62 100 02/11/17 22:58 62 14 131/77 100 02/11/17 22:31 80 14 107/64 100 02/11/17 22:09 66 14 95/59 100 02/11/17 21:54 67 14 99/60 100 02/11/17 21:49 66 14 96/59 100 02/11/17 21:32 63 14 101/60 100 02/11/17 21:10 70 14 111/58 100 02/11/17 20:41 61 20 124/80 100 02/11/17 20:24 76 18 89/67 98 02/11/17 20:14 96.8 F L 82 14 102/67 98 Intake and Output 02/11/17 02/12/17 02/12/17 22:59 06:59 14:59 Intake Total 2.112 493.538 100 Output Total 200 20 Balance 2.112 293.538 80 Intake: IV 475 100 Sodium Chloride 0.9% 1, 475 100 000 ml @ 100 mls/hr IV . Q10H [facility] Rx#:[id number] Intake, IV Titration 2.112 18.538 Amount Propofol 1,000 mg In 100 2.112 18.538 ml @ Titrate IV .Q0M [facility] Rx#:[id number] Output: Urine 200 20 Other: Voiding Method Indwelling Catheter Weight 40.823 kg 36.2 kg - Constitutional General appearance: Intubated, sedated - EENT Eyes: anicteric sclerae, PERRLA, normal appearance ENT: hearing grossly normal - Neck Neck: no lymphadenopathy, normal ROM, no other, no rigidity, no stridor, no thyromegaly - Respiratory Respiratory: bilateral: CTA, negative: diminished, dullness, rales, rhonchi - Cardiovascular Rhythm: regular Heart sounds: normal: S1, S2 Abnormal Heart Sounds: no systolic murmur, no diastolic murmur, no rub, no S3 Gallop, no S4 Gallop, no click, no other - Gastrointestinal General gastrointestinal: normal bowel sounds, soft - Integumentary Integumentary: no rash - Neurologic Neurologic: CNII-XII intact - Musculoskeletal Musculoskeletal: Gait could not be assessed, patient does follow commands and squeezes fingers on command - Psychiatric Psychiatric: A&O x's 3, appropriate affect Results CBC & Chem 7: 02/12/17 04:16 02/12/17 04:16 Labs: Abnormal Lab Results - Last 24 Hours (Table) 02/11/17 02/11/17 02/11/17 Range/Units 20:20 21:21 21:40 MCV (80.0-100.0) fL ABG pH 7.29 L (7.35-7.45) ABG pCO2 48 H (35-45) mmHg ABG pO2 >420 H (83-108) mmHg ABG O2 Saturation 100.0 H (94-97) % Sodium (137-145) mmol/L Chloride (98-107) mmol/L Carbon Dioxide (22-30) mmol/L Creatinine (0.52-1.04) mg/dL POC Glucose (mg/dL) 71 L (75-99) mg/dL Urine Glucose (UA) (Negative) Urine Blood (Negative) Ur Leukocyte Esterase (Negative) Urine RBC (0-5) /hpf Urine WBC Clumps (None) /hpf Urine Bacteria (None) /hpf Hyaline Casts (0-2) /lpf Urine Mucus (None) /hpf Ur Barbiturates Screen Detected H (NotDetected) U Benzodiazepines Scrn Detected H (NotDetected) 02/12/17 02/12/17 02/12/17 Range/Units 01:27 01:52 03:15 MCV (80.0-100.0) fL ABG pH (7.35-7.45) ABG pCO2 (35-45) mmHg ABG pO2 (83-108) mmHg ABG O2 Saturation (94-97) % Sodium (137-145) mmol/L Chloride (98-107) mmol/L Carbon Dioxide (22-30) mmol/L Creatinine (0.52-1.04) mg/dL POC Glucose (mg/dL) 61 L 155 H (75-99) mg/dL Urine Glucose (UA) Trace H (Negative) Urine Blood Large H (Negative) Ur Leukocyte Esterase Trace H (Negative) Urine RBC 25 H (0-5) /hpf Urine WBC Clumps Rare H (None) /hpf Urine Bacteria Rare H (None) /hpf Hyaline Casts 3 H (0-2) /lpf Urine Mucus Occasional H (None) /hpf Ur Barbiturates Screen (NotDetected) U Benzodiazepines Scrn (NotDetected) 02/12/17 02/12/17 Range/Units 04:16 04:16 MCV 102.8 H (80.0-100.0) fL ABG pH (7.35-7.45) ABG pCO2 (35-45) mmHg ABG pO2 (83-108) mmHg ABG O2 Saturation (94-97) % Sodium 136 L (137-145) mmol/L Chloride 108 H (98-107) mmol/L Carbon Dioxide 21 L (22-30) mmol/L Creatinine 0.50 L (0.52-1.04) mg/dL POC Glucose (mg/dL) (75-99) mg/dL Urine Glucose (UA) (Negative) Urine Blood (Negative) Ur Leukocyte Esterase (Negative) Urine RBC (0-5) /hpf Urine WBC Clumps (None) /hpf Urine Bacteria (None) /hpf Hyaline Casts (0-2) /lpf Urine Mucus (None) /hpf Ur Barbiturates Screen (NotDetected) U Benzodiazepines Scrn (NotDetected) Thrombosis Risk Factor Assmnt - Choose All That Apply Each Factor Represents 1 point: Abnormal pulmonary function (COPD), Age 41-60 years Thrombosis Risk Factor Assessment Total Risk Factor Score: 2 Thrombosis Risk Factor Assessment Level: Low Risk Assessment and Plan Plan: 1. Acute hypoxemic hypercapnic respiratory failure secondary to altered mental status and respiratory depression from benzodiazepine overdose - Patient continued to remain intubated to protect the airways , repeat ABG this morning. Patient currently on minimal vent settings and is responding to basic commands. On propofol for sedation. 2. Acute metabolic encephalopathy secondary to benzodiazepine overdose and respiratory depression - Patient overdose on 60 tablets of Xanax in 1 week - Continue respiratory support with ventilation - Poison control called , repeat EKG this morning. Repeat EKG in the evening - Monitor QT and QRS interval daily - Sodium normal - Continue telemetry 3. Benzodiazepine overdose- management as above - Watch for benzodiazepine withdrawal as patient is on chronic Xanax and might need to be on long-acting benzodiazepine once Xanax years off patient's system in the next 24 hours. - Patient also has a history of alcohol abuse unclear of patient's last alcohol intake, watch for withdrawal 4. Decreased urine output - BMP within normal limits, status post 1000 mL normal saline - Continue fluids at 100 mL/h 5. Depression recurrent with suicidal ideation. Sitter bedside, psychiatry consulted and patient would need admission to mental health once medically stable. 6. Alcohol abuse - watch for alcohol withdrawal, currently patient is not on any benzodiazepine 7. Tobacco use and dependence. 4. Chronic neck and back pain status post ACDF. Hold Knox or Zanaflex due to altered mental status 5. COPD, stable and asthma. Continue albuterol Atrovent nebulization 6. Osteoporosis. Hold Fosamax 7. 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 8. Malnutrition with BMI of 15. Nutrition consult when medically stable 9 questionable history of seizure disorder- patient is currently on primidone 50 mg 3 times a day #10 DVT prophylaxis continue pneumatic compression #11 GI prophylaxis continue protonic IV 40 mg daily #12 disposition to psych facility once medically stable
[2017-02-12 12:14] LABS: Glucose,Whole Blood 62 mg/dL (75-99)
[2017-02-12 12:34] LABS: Glucose,Whole Blood 103 mg/dL (75-99)
[2017-02-12 14:26] VITALS: BMI 14.1
[2017-02-12] MEDS: DEXTROSE 5%-0.9% NACL 1,000 ML IV SCH (14:30)
--- NOTE | 2017-02-12 14:49 | P.CNPUL ---
History of Present Illness Consult date: 02/12/17 Requesting physician: Tracey Skaggs Reason for consult: other (Acute respiratory failure secondary to Xanax overdose ) Chief complaint: Overdose History of present illness: This is a 61-year-old female with history of multiple medical problems including COPD, osteoarthritis, depression, chronic alcohol abuse, patient presented to the ER last night with change in mental status and decreased responsiveness according to the family. Family reported that the patient may have taken 60 tablets of Xanax 1 mg each attempting to commit suicide. Patient was intubated by the ER physician, admitted to the ICU, and I was asked to see her on consultation. Her drug screen was negative for barbiturates and benzodiazepines. Negative for salicylates, negative for acetaminophen. Alcohol level was less than 10. Patient was kept overnight on mechanical ventilation, and when I saw this morning, patient was arousable, following simple instructions, but she was noted to be extremely agitated with endotracheal tube in place. Patient was extubated uneventfully. And she was placed on a nasal cannula, I plan to keep her on the alcohol withdrawal protocol. Review of Systems ROS unobtainable: due to endotracheal tube (No family members available for review of systems.) Past Medical History Past Medical History: Asthma, COPD, Hyperlipidemia, Osteoarthritis (OA), Pneumonia, Seizure Disorder Additional Past Medical History / Comment(s): Alcoholism-pt states last drank "several months ago", past DTs, questionable hx of seizures but pt states if so , none for yrs, peripheral neuropathy bilateral lower extremities, osteoporosis , chronic cervical/back pain and pt states generalized chronic "bone" pain, bronchitis. History of Any Multi-Drug Resistant Organisms: None Reported Past Surgical History: Appendectomy, Section, Hysterectomy, Orthopedic Surgery Additional Past Surgical History / Comment(s): ACDF, ORIF right foot, EGD, cervical spurs removed. Past Anesthesia/Blood Transfusion Reactions: No Reported Reaction Smoking Status: Current every day smoker - Past Family History Mother Additional Family Medical History / Comment(s): Mother at age 38 from colon cancer. Patient does not know her father. Son(s) Additional Family Medical History / Comment(s): Patient has 3 children, 2 boys and one girl with no major medical problems. Patient does not have any brothers or sisters. Medications and Allergies Home Medications Medication Instructions Recorded Confirmed Type Alendronate Sodium [Fosamax] 70 mg PO Q7D 05/05/16 02/12/17 History Aspirin EC [Ecotrin Low Dose] 81 mg PO DAILY 05/05/16 02/12/17 History Atorvastatin [Lipitor] 40 mg PO HS 05/05/16 02/12/17 History Azelastine HCl [Astepro] 1 spray EA NOSTRIL DAILY PRN 05/05/16 02/12/17 History Citalopram Hydrobromide 40 mg PO DAILY 05/05/16 02/12/17 History [Citalopram HBr] HYDROcodone/APAP 10-325MG [[place] 1 tab PO Q4H PRN 05/05/16 02/12/17 History 10-325] Montelukast [Singulair] 10 mg PO HS 05/05/16 02/12/17 History Omeprazole [PriLOSEC] 20 mg PO AC-BRKFST 05/05/16 02/12/17 History Primidone [Mysoline] 50 mg PO BID 05/05/16 02/12/17 History tiZANidine [Zanaflex] 4 mg PO TID 05/05/16 02/12/17 History ALPRAZolam [Xanax] 1 mg PO BID PRN 01/23/17 02/12/17 History Albuterol Nebulized [Ventolin 2.5 mg INHALATION RT-Q4H 01/23/17 02/12/17 History Nebulized] Ipratropium/Albuterol Sulfate 1 puff INHALATION RT-QID 01/23/17 02/12/17 History [Combivent Respimat Inhaler] Budesonide [Pulmicort] 0.5 mg INHALATION RT-BID 02/12/17 02/12/17 History Cholecalciferol [Vitamin D3] 1,000 unit PO DAILY 02/12/17 02/12/17 History Fluticasone Propionate [Flovent 2 puff INHALATION RT-BID 02/12/17 02/12/17 History Hfa 220MCG] Metoclopramide HCl [Reglan] 5 mg PO DAILY PRN 02/12/17 02/12/17 History Allergies Allergy/AdvReac Type Severity Reaction Status Date / Time No Known Allergies Allergy Verified 02/11/17 20:14 Physical Exam Vitals: Vital Signs Temp Pulse Resp BP Pulse Ox 10/20/17 14:00 79 22 107/63 100 02/12/17 13:00 79 22 93/54 96 02/12/17 12:00 70 22 117/69 97 02/12/17 11:00 61 30 H 132/70 100 02/12/17 10:00 84 20 117/73 100 02/12/17 09:00 53 L 17 118/70 100 02/12/17 08:25 58 L 02/12/17 08:09 55 L 02/12/17 08:00 98.3 F 58 L 22 113/66 100 02/12/17 07:00 52 L 14 107/65 100 02/12/17 06:00 56 L 13 101/60 100 02/12/17 05:00 59 L 14 87/61 100 02/12/17 04:00 98.4 F 58 L 18 118/67 100 02/12/17 03:00 89 28 H 114/73 91 L 02/12/17 02:00 54 L 14 107/67 100 02/12/17 01:30 98.1 F 58 L 14 128/76 100 02/12/17 00:59 98.1 F 14 96 02/12/17 00:58 75 14 124/59 100 02/12/17 00:25 59 L 14 116/75 100 02/11/17 23:48 66 14 103/62 100 02/11/17 22:58 62 14 131/77 100 02/11/17 22:31 80 14 107/64 100 02/11/17 22:09 66 14 95/59 100 02/11/17 21:54 67 14 99/60 100 02/11/17 21:49 66 14 96/59 100 02/11/17 21:32 63 14 101/60 100 02/11/17 21:10 70 14 111/58 100 02/11/17 20:41 61 20 124/80 100 02/11/17 20:24 76 18 89/67 98 02/11/17 20:14 96.8 F L 82 14 102/67 98 Intake and Output 02/11/17 02/12/17 02/12/17 22:59 06:59 14:59 Intake Total 2.112 307.347 3820 Output Total 200 840 Balance 2.112 293.538 860 Intake: IV 475 1700 Dextrose 5%-0.9% NaCl 1, 200 000 ml @ 100 mls/hr IV . Q10H [facility] Rx#:[id number] Sodium Chloride 0.9% 1, 475 500 000 ml @ 100 mls/hr IV . Q10H [facility] Rx#:[id number] Sodium Chloride 0.9% 1, 1000 000 ml @ 999 mls/hr IV . Q1H1M [facility] Rx#:[id number] Intake, IV Titration 2.112 18.538 Amount Propofol 1,000 mg In 100 2.112 18.538 ml @ Titrate IV .Q0M [facility] Rx#:[id number] Output: Urine 200 840 Other: Voiding Method Indwelling Catheter Indwelling Catheter Weight 40.823 kg 36.2 kg 36.2 kg Patient Weight 02/13/17 06:59 Weight 36.2 kg General appearance: Revealed a 61-year-old female on mechanical ventilation, anxious, in no form of respiratory distress. Head exam: Normocephalic, atraumatic. Eye exam: PERRLA, EOMI, no icterus, no jaundice. ENT exam: Moist mucous membranes, nasal mucosa is normal. Throat is clear. Neck exam: Neck is supple no neck masses no thyromegaly no cervical lymphadenopathy no stridor Respiratory exam: Diminished breath sound bilaterally no crackles or rhonchi or wheezes Cardiovascular Exam: Normal S1 and S2 no gallops no murmur. GI/Abdominal exam: Soft nontender no megaly no rebound no guarding. Extremities exam: No clubbing, no edema, no cyanosis. Neurological exam: No gross focal neurologic deficit, patient seems to be quite anxious on mechanical ventilation, however she was extubated uneventfully, and Skin exam: No ulcerations, no rashes. Psychiatric: Anxious, blunt affect, depressed mood. Results - Laboratory Findings CBC and BMP: 02/12/17 04:16 02/12/17 04:16 ABG ABG pH 7.43 (7.35-7.45) 02/12/17 08:46 ABG pCO2 33 mmHg (35-45) L 02/12/17 08:46 ABG pO2 140 mmHg (83-108) H 02/12/17 08:46 ABG O2 Saturation 99.0 % (94-97) H 02/12/17 08:46 PT/INR, D-dimer PT 10.6 sec (9.0-12.0) 02/11/17 20:19 INR 1.0 (<1.2) 02/11/17 20:19 Abnormal lab findings: Abnormal Labs 02/11/17 02/11/17 02/11/17 20:20 21:21 21:40 MCV ABG pH 7.29 L ABG pCO2 48 H ABG pO2 >420 H ABG O2 Saturation 100.0 H Sodium Chloride Carbon Dioxide Creatinine POC Glucose (mg/dL) 71 L Urine Glucose (UA) Urine Blood Ur Leukocyte Esterase Urine RBC Urine WBC Clumps Urine Bacteria Hyaline Casts Urine Mucus Ur Barbiturates Screen Detected H U Benzodiazepines Scrn Detected H 02/12/17 02/12/17 02/12/17 01:27 01:52 03:15 MCV ABG pH ABG pCO2 ABG pO2 ABG O2 Saturation Sodium Chloride Carbon Dioxide Creatinine POC Glucose (mg/dL) 61 L 155 H Urine Glucose (UA) Trace H Urine Blood Large H Ur Leukocyte Esterase Trace H Urine RBC 25 H Urine WBC Clumps Rare H Urine Bacteria Rare H Hyaline Casts 3 H Urine Mucus Occasional H Ur Barbiturates Screen U Benzodiazepines Scrn 02/12/17 02/12/17 02/12/17 04:16 04:16 08:46 MCV 102.8 H ABG pH ABG pCO2 33 L ABG pO2 140 H ABG O2 Saturation 99.0 H Sodium 136 L Chloride 108 H Carbon Dioxide 21 L Creatinine 0.50 L POC Glucose (mg/dL) Urine Glucose (UA) Urine Blood Ur Leukocyte Esterase Urine RBC Urine WBC Clumps Urine Bacteria Hyaline Casts Urine Mucus Ur Barbiturates Screen U Benzodiazepines Scrn 02/12/17 02/12/17 02/12/17 08:54 12:12 12:32 MCV ABG pH ABG pCO2 ABG pO2 ABG O2 Saturation Sodium Chloride Carbon Dioxide Creatinine POC Glucose (mg/dL) 56 L 62 L 103 H Urine Glucose (UA) Urine Blood Ur Leukocyte Esterase Urine RBC Urine WBC Clumps Urine Bacteria Hyaline Casts Urine Mucus Ur Barbiturates Screen U Benzodiazepines Scrn - Diagnostic Findings Chest x-ray: image reviewed (No acute pulmonary process was noted.) Assessment and Plan Plan: Impression: 1 acute hypoxic and hypercapnic respiratory failure secondary to benzodiazepines overdose. 2 acute metabolic encephalopathy secondary to drugs overdose 3 history of depression 4 history of alcohol abuse 5 history of recurrent suicidal ideations hence the patient will need psychiatric evaluation today. Recommendation: Continue present treatment plan, patient was extubated, we'll keep a sitter next to the patient, she will remain on suicidal precautions, we' ll monitor closely in the ICU, and will seek psychiatric consultation. We'll continue to follow. Time with Patient: Greater than 30
[2017-02-12 16:29] LABS: Glucose,Whole Blood 96 mg/dL (75-99)
[2017-02-12 19:59] LABS: Glucose,Whole Blood 153 mg/dL (75-99)
[2017-02-12] MEDS: ATORVASTATIN 40 MG TAB PO SCH (20:06)
[2017-02-12] MEDS: PRIMIDONE 50 MG TAB PO SCH (20:06)
[2017-02-13] MEDS: DEXTROSE 5%-0.9% NACL 1,000 ML IV SCH ×3 (01:23→21:51)
[2017-02-13 07:10] LABS: Basophils % (A) 0 %; CH 33.6; CHCM 33.8; Eosinophils % (A) 1 %; HCT 34.1 % (34.0-46.0); HDW 2.21; HGB 10.8 gm/dL (11.4-16.0); Luc # (Auto) 0.07; Luc % (Auto) 1; Lymphocytes # (A) 1.1 k/uL (1.0-4.8); Lymphocytes % (A) 22 %; MCH 31.7 pg (25.0-35.0); MCHC 31.7 g/dL (31.0-37.0); Mean Platelet Volume 7.7; Monocytes # (A) 0.3 k/uL (0-1.0); Monocytes % (A) 6 %; Neutrophils # (A) 3.3 k/uL (1.3-7.7); Neutrophils % (A) 70 %; RBC 3.41 m/uL (3.80-5.40); RDW 13.4 % (11.5-15.5); WBC 4.8 k/uL (3.8-10.6); WBC (Perox) 3.99
[2017-02-13 07:17] LABS: Glucose,Whole Blood 120 mg/dL (75-99)
[2017-02-13] MEDS: IPRATROPIUM-ALBUTEROL 3 ML NEB INHALATION SCH ×4 (07:20→19:55)
[2017-02-13 07:26] LABS: Anion Gap 5 mmol/L; Blood Urea Nitrogen 4 mg/dL (7-17); Carbon Dioxide 22 mmol/L (22-30); Chloride 109 mmol/L (98-107); Glucose 107 mg/dL (74-99); Magnesium 1.7 mg/dL (1.6-2.3); Non-African American GFR(MDRD) >60 (>60 ml/min/1.73 sqM); Phosphorus 3.1 mg/dL (2.5-4.5); Potassium 3.5 mmol/L (3.5-5.1); Sodium 136 mmol/L (137-145)
[2017-02-13] MEDS: PANTOPRAZOLE 40 MG/10 ML VIAL IV SCH (07:41)
[2017-02-13] MEDS: ASPIRIN 81 MG PO SCH (07:42)
[2017-02-13] MEDS: HEPARIN SODIUM,PORCINE 5,000 UNIT/ML 1 ML VIAL SQ SCH ×3 (07:42→23:54)
[2017-02-13] MEDS: PRIMIDONE 50 MG TAB PO SCH ×2 (07:42→21:53)
[2017-02-13] MEDS ORDERED: CITALOPRAM HYDROBROMIDE 20 MG TAB PO SCH (09:00)
[2017-02-13] MEDS: ALPRAZolam 0.5 MG TAB PO PRN ×2 (09:28→21:53)
[2017-02-13 11:58] LABS: Glucose,Whole Blood 93 mg/dL (75-99)
--- NOTE | 2017-02-13 12:59 | P.PN ---
Subjective Progress Note Date: 02/13/17 Principal diagnosis: Acute respiratory failure secondary to Xanax overdose This is a 61-year-old female with history of multiple medical problems including COPD, osteoarthritis, depression, chronic alcohol abuse, patient presented to the ER last night with change in mental status and decreased responsiveness according to the family. Family reported that the patient may have taken 60 tablets of Xanax 1 mg each attempting to commit suicide. Patient was intubated by the ER physician, admitted to the ICU, and I was asked to see her on consultation. Her drug screen was negative for barbiturates and benzodiazepines. Negative for salicylates, negative for acetaminophen. Alcohol level was less than 10. Patient was kept overnight on mechanical ventilation, and when I saw this morning, patient was arousable, following simple instructions, but she was noted to be extremely agitated with endotracheal tube in place. Patient was extubated uneventfully. And she was placed on a nasal cannula, I plan to keep her on the alcohol withdrawal protocol. On 02/13/2017 patient is seen in follow-up on medical surgical floor. She is sitting up on the edge of the bed, appears to be in no acute distress. There is a health and safety consultant at the bedside for suicide precautions. Patient appears to be weak, but she states she was able to ambulate with assistance down the [place] and back without significant respiratory distress. She is currently on room air with O2 sat around 94-98%. She has been afebrile, no significant sputum production. Respirations are even and unlabored. Lung sounds are clear diminished at the bases. No wheezing, no rhonchi, no rales appreciated. Psychiatry will be seeing the patient today in consultation. Patient states she gets anxious at times, she remembers trying to intentionally overdose on Xanax. She has had prior suicide attempts in the past, history of depression previously treated with Celexa. She appears to be stable from respiratory standpoint. Continue encouraging activity as tolerated. Xanax 0.5 mg 3 times a day as needed was added by Dr. Nevarez for intermittent anxiety and shortness of breath associated with anxiety. 2 units DuoNeb treatments. Objective - Vital Signs Vital signs: Vital Signs Temp 98.5 F 02/13/17 07:00 Pulse 88 02/13/17 08:01 Resp 18 02/13/17 08:01 BP 131/71 02/13/17 07:00 Pulse Ox 98 02/12/17 23:00 Intake & Output 02/12/17 02/13/17 02/13/17 18:59 06:59 18:59 Intake Total 2200 1000 Output Total 1690 Balance 510 1000 Weight 36.2 kg Intake: IV 1900 800 Dextrose 5%-0.9% NaCl 1, 400 800 000 ml @ 100 mls/hr IV . Q10H DARNELL Rx#:[id number] Sodium Chloride 0.9% 1, 500 000 ml @ 100 mls/hr IV . Q10H DARNELL Rx#:[id number] Sodium Chloride 0.9% 1, 1000 000 ml @ 999 mls/hr IV . Q1H1M ONE Rx#:[id number] Intake, IV Titration 300 200 Amount Dextrose 5%-0.9% NaCl 1, 300 200 000 ml @ 100 mls/hr IV . Q10H DARNELL Rx#:[id number] Output: Urine 1690 Other: Voiding Method Indwelling Catheter Toilet Toilet # Bowel Movements 1 - Exam General appearance: Revealed a 61-year-old female on mechanical ventilation, anxious, in no form of respiratory distress. Head exam: Normocephalic, atraumatic. Eye exam: PERRLA, EOMI, no icterus, no jaundice. ENT exam: Moist mucous membranes, nasal mucosa is normal. Throat is clear. Neck exam: Neck is supple no neck masses no thyromegaly no cervical lymphadenopathy no stridor Respiratory exam: Diminished breath sound bilaterally no crackles or rhonchi or wheezes Cardiovascular Exam: Normal S1 and S2 no gallops no murmur. GI/Abdominal exam: Soft nontender no megaly no rebound no guarding. Extremities exam: No clubbing, no edema, no cyanosis. Neurological exam: No gross focal neurologic deficit, patient seems to be quite anxious on mechanical ventilation, however she was extubated uneventfully, and Skin exam: No ulcerations, no rashes. Psychiatric: Anxious, blunt affect, depressed mood. - Labs CBC & Chem 7: 02/13/17 06:39 02/13/17 06:39 Labs: Abnormal Lab Results - Last 24 Hours (Table) 02/12/17 02/13/17 02/13/17 Range/Units 19:58 06:39 06:39 RBC 3.41 L (3.80-5.40) m/uL Hgb 10.8 L (11.4-16.0) gm/dL Sodium 136 L (137-145) mmol/L Chloride 109 H (98-107) mmol/L BUN 4 L (7-17) mg/dL Creatinine 0.51 L (0.52-1.04) mg/dL Glucose 107 H (74-99) mg/dL POC Glucose (mg/dL) 153 H (75-99) mg/dL Calcium 8.0 L (8.4-10.2) mg/dL 02/13/17 Range/Units 07:15 RBC (3.80-5.40) m/uL Hgb (11.4-16.0) gm/dL Sodium (137-145) mmol/L Chloride (98-107) mmol/L BUN (7-17) mg/dL Creatinine (0.52-1.04) mg/dL Glucose (74-99) mg/dL POC Glucose (mg/dL) 120 H (75-99) mg/dL Calcium (8.4-10.2) mg/dL Assessment and Plan Plan: Assessment and Plan Plan: Impression: 1 acute hypoxic and hypercapnic respiratory failure secondary to benzodiazepines overdose. 2 acute metabolic encephalopathy secondary to drugs overdose, improving 3 history of depression 4 history of alcohol abuse, no signs of delirium tremens 5 history of recurrent suicidal ideations hence the patient will need psychiatric evaluation today. Recommendation: Continue present treatment plan, continue with DuoNeb nebulized treatments, we' ll keep a sitter next to the patient, she will remain on suicidal precautions, encourage ambulation with supervision. We will add Xanax 0.5 mg 3 times a day when necessary for anxiety and the shortness of breath associated with the anxiety. Await input of psychiatry today. No other major events overnight. Remains stable from pulmonary standpoint. I performed a history & physical examination of the patient and discussed their management with my nurse practitioner, Allegra Hdz. I reviewed the nurse practitioner's note and agree with the documented findings and plan of care. Lung sounds clear diminished at the bases with no rhonchi nor rales no wheezing. Await input of psychiatry. I attest the documentation by the nurse practitioner Time with Patient: Less than 30
[2017-02-13 17:39] LABS: Glucose,Whole Blood 117 mg/dL (75-99)
--- NOTE | 2017-02-13 21:37 | PN ---
PROGRESS NOTE INTERVAL HISTORY: Patient continued to be hemodynamically stable. No major events reported by nursing staff. Patient with some improvement in her pulmonary status was still like have diffuse wheezing and requiring oxygen supplementation. The patient currently is denying chest pain, nausea, vomiting, or abdominal pain. PHYSICAL EXAMINATION: Vital signs are stable. Lungs diffuse wheezing as mentioned above. ABDOMEN: Soft, nontender, bowel sounds in all 4 quadrants. Skin no new rash. Psych alert oriented x3. IMAGING AND LABS: CBC showed hemoglobin stable at 10.8. Chemistry revealed sodium 136, and BUN and creatinine on the low side. ASSESSMENT: 1. Acute hypoxic and hypercapnic respiratory failure requiring oxygen supplementation. Patient seems to be improving. 2. Acute metabolic encephalopathy secondary to drug overdose. The patient seems to be improved and medically becoming stable. Still waiting on final evaluation from Psychiatry regarding discharge planning. 3. Acute depression. Psych evaluation for inpatient psychiatric floor admission. 4. History of alcohol abuse. No signs of alcohol withdrawal. Continue with CIWA protocol. 5. Insomnia. Patient asked for Ambien to be prescribed as needed. We will provide 5 mg on an as needed basis. 6. Anemia seems to be mild and stable. We will continue monitoring. MMODL / IJN: [id number] /
[2017-02-13] MEDS: ATORVASTATIN 40 MG TAB PO SCH (21:53)
[2017-02-14 01:25] LABS: Glucose,Whole Blood 133 mg/dL (75-99)
[2017-02-14 06:43] LABS: Glucose,Whole Blood 116 mg/dL (75-99)
[2017-02-14] MEDS: IPRATROPIUM-ALBUTEROL 3 ML NEB INHALATION SCH ×3 (07:12→15:06)
[2017-02-14 07:29] LABS: Basophils % (A) 0 %; CHCM 33.6; Eosinophils % (A) 1 %; HCT 33.4 % (34.0-46.0); HDW 2.23; Luc # (Auto) 0.07; Luc % (Auto) 2; Lymphocytes % (A) 25 %; MCH 32.5 pg (25.0-35.0); MCV 98.6 fL (80.0-100.0); Mean Platelet Volume 6.8; Monocytes # (A) 0.2 k/uL (0-1.0); Monocytes % (A) 6 %; Neutrophils # (A) 2.8 k/uL (1.3-7.7); Neutrophils % (A) 66 %; RBC 3.38 m/uL (3.80-5.40); RDW 12.3 % (11.5-15.5); WBC 4.2 k/uL (3.8-10.6); WBC (Perox) 4.04
[2017-02-14 07:49] LABS: Anion Gap 7 mmol/L; Blood Urea Nitrogen <2 mg/dL (7-17); Calcium 8.6 mg/dL (8.4-10.2); Carbon Dioxide 24 mmol/L (22-30); Chloride 106 mmol/L (98-107); Glucose 109 mg/dL (74-99); Magnesium 1.7 mg/dL (1.6-2.3); Non-African American GFR(MDRD) >60 (>60 ml/min/1.73 sqM); Phosphorus 3.1 mg/dL (2.5-4.5); Potassium 3.4 mmol/L (3.5-5.1); Sodium 137 mmol/L (137-145)
[2017-02-14] MEDS: DEXTROSE 5%-0.9% NACL 1,000 ML IV SCH (08:42)
[2017-02-14 08:53] VITALS: RESP 18
[2017-02-14] MEDS: ASPIRIN 81 MG PO SCH (09:24)
[2017-02-14] MEDS: PRIMIDONE 50 MG TAB PO SCH (09:25)
[2017-02-14] MEDS: HEPARIN SODIUM,PORCINE 5,000 UNIT/ML 1 ML VIAL SQ SCH (09:57)
[2017-02-14] MEDS: PANTOPRAZOLE 40 MG/10 ML VIAL IV SCH (09:58)
--- NOTE | 2017-02-14 10:14 | P.DS ---
Providers Date of admission: 02/12/17 00:13 Attending physician: Tracey Skaggs Consults: 02/12/17 00:13 Consult Physician Routine Consulting Provider: Evans Weir Consult Reason/Comments: overdose Do you want consulting provider notified?: Yes Consult Physician Urgent Consulting Provider: Maribel Bañuelos Consult Reason/Comments: Overdose Do you want consulting provider notified?: Already Contacted Primary care physician: [facility] Course: This is 61 years old female with past medical history for depression presents to the hospital with suicidal ideation and drug overdose. Patient was monitored on the medical floor and felt stable from the medical standpoint for discharge. Psych evaluation was ordered regarding recommendation regarding discharge planning and we will consider discharging patients to inpatient psychiatric floor after evaluation by psychiatry. Plan - Discharge Summary Discharge Rx Participant: No New Discharge Prescriptions: No Action tiZANidine [Zanaflex] 4 mg PO TID Omeprazole [PriLOSEC] 20 mg PO AC-BRKFST Primidone [Mysoline] 50 mg PO BID Montelukast [Singulair] 10 mg PO HS HYDROcodone/APAP 10-325MG [[place] 10-325] 1 tab PO Q4H PRN PRN Reason: Pain Citalopram Hydrobromide [Citalopram HBr] 40 mg PO DAILY Azelastine HCl [Astepro] 1 spray EA NOSTRIL DAILY PRN PRN Reason: Nasal Congestion Atorvastatin [Lipitor] 40 mg PO HS Aspirin EC [Ecotrin Low Dose] 81 mg PO DAILY Alendronate Sodium [Fosamax] 70 mg PO Q7D Albuterol Nebulized [Ventolin Nebulized] 2.5 mg INHALATION RT-Q4H Ipratropium/Albuterol Sulfate [Combivent Respimat Inhaler] 1 puff INHALATION RT-QID ALPRAZolam [Xanax] 1 mg PO BID PRN PRN Reason: Anxiety Budesonide [Pulmicort] 0.5 mg INHALATION RT-BID Cholecalciferol [Vitamin D3] 1,000 unit PO DAILY Fluticasone Propionate [Flovent Hfa 220MCG] 2 puff INHALATION RT-BID Metoclopramide HCl [Reglan] 5 mg PO DAILY PRN PRN Reason: Nausea Discharge Medication List Alendronate Sodium [Fosamax] 70 mg PO Q7D 05/05/16 [History] Aspirin EC [Ecotrin Low Dose] 81 mg PO DAILY 05/05/16 [History] Atorvastatin [Lipitor] 40 mg PO HS 05/05/16 [History] Azelastine HCl [Astepro] 1 spray EA NOSTRIL DAILY PRN 05/05/16 [History] Citalopram Hydrobromide [Citalopram HBr] 40 mg PO DAILY 05/05/16 [History] HYDROcodone/APAP 10-325MG [[place] 10-325] 1 tab PO Q4H PRN 05/05/16 [History] Montelukast [Singulair] 10 mg PO HS 05/05/16 [History] Omeprazole [PriLOSEC] 20 mg PO AC-BRKFST 05/05/16 [History] Primidone [Mysoline] 50 mg PO BID 05/05/16 [History] tiZANidine [Zanaflex] 4 mg PO TID 05/05/16 [History] ALPRAZolam [Xanax] 1 mg PO BID PRN 01/23/17 [History] Albuterol Nebulized [Ventolin Nebulized] 2.5 mg INHALATION RT-Q4H 01/23/17 [ History] Ipratropium/Albuterol Sulfate [Combivent Respimat Inhaler] 1 puff INHALATION RT- QID 01/23/17 [History] Budesonide [Pulmicort] 0.5 mg INHALATION RT-BID 02/12/17 [History] Cholecalciferol [Vitamin D3] 1,000 unit PO DAILY 02/12/17 [History] Fluticasone Propionate [Flovent Hfa 220MCG] 2 puff INHALATION RT-BID 02/12/17 [ History] Metoclopramide HCl [Reglan] 5 mg PO DAILY PRN 02/12/17 [History] Follow up Appointment(s)/Referral(s): Santosh Hyatt DO [Primary Care Provider] - 1-2 days
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
[2017-02-14 15:02] VITALS: BP 144/83; TEMP 97.4
[2017-02-14 15:10] VITALS: PULSE 84
== END 2017-02-14 15:32 | DRG 917 ==
LOC: EC 20:11 → 6ICU 02-12 00:13 → 5MS5E 02-12 21:09
PROVIDERS: ADMIT Family Medicine; ATTEND Family Medicine
PROC: 0BH17EZ Insertion of Endotracheal Airway into Trachea, Via Natural or Artificial Opening (ICD-10-PCS; principal; 2017-02-11)
PROC: 5A1935Z Respiratory Ventilation, Less than 24 Consecutive Hours (ICD-10-PCS; 2017-02-11)
PROC: 0D9670Z Drainage of Stomach with Drainage Device, Via Natural or Artificial Opening (ICD-10-PCS; 2017-02-11)
DX: T42.4X2A Poisoning by benzodiazepines, intentional self-harm, initial encounter (principal); J96.01 Acute respiratory failure with hypoxia; G92 Toxic encephalopathy; J96.02 Acute respiratory failure with hypercapnia; E46 Unspecified protein-calorie malnutrition; R45.851 Suicidal ideations; F33.9 Major depressive disorder, recurrent, unspecified; Z68.1 Body mass index [BMI] 19.9 or less, adult; G93.89 Other specified disorders of brain; J44.9 Chronic obstructive pulmonary disease, unspecified; G62.1 Alcoholic polyneuropathy; R40.2430 Glasgow coma scale score 3-8, unspecified time; F41.9 Anxiety disorder, unspecified; E78.5 Hyperlipidemia, unspecified; F17.210 Nicotine dependence, cigarettes, uncomplicated; G40.909 Epilepsy, unspecified, not intractable, without status epilepticus; D64.9 Anemia, unspecified; F10.20 Alcohol dependence, uncomplicated; G47.00 Insomnia, unspecified; M81.0 Age-related osteoporosis without current pathological fracture; G89.29 Other chronic pain; M54.2 Cervicalgia; M54.9 Dorsalgia, unspecified; Z91.5 Personal history of self-harm; Z79.82 Long term (current) use of aspirin; Z79.83 Long term (current) use of bisphosphonates; Z79.51 Long term (current) use of inhaled steroids; Z79.899 Other long term (current) drug therapy; Y90.0 Blood alcohol level of less than 20 mg/100 ml; Z90.710 Acquired absence of both cervix and uterus; Z98.1 Arthrodesis status; Z71.3 Dietary counseling and surveillance; Y92.009 Unspecified place in unspecified non-institutional (private) residence as the place of occurrence of the external cause
CPT/HCPCS: 31500; 36415; 36600; 70450; 71010; 80048; 80053; 80306; 80320; 81001; 81025; 82550; 82553; 82805; 83520; 83735; 84100; 84484; 85025; 85610; 87070; 87205; 93005; 94002; 94003; 94640; 96374; 96375; 99291